=== PATIENT | female | born 1950 | race Caucasian/White ===

== ENCOUNTER → 2016-08-12 | Outpatient (CLI) | payer BC ==
[2016-04-26 17:46] VITALS: BP 110/83
[~2016-08-12] MED LIST: CYCL10TA2 PO
--- NOTE | 2016-08-13 10:20 | RAD ---
DATE: 08/12/2016 EXAM: DIGITAL SCREEN BILAT W/CAD HISTORY: Routine screening COMPARISON: 09/21/2009 This study was interpreted with the benefit of Computerized Aided Detection (CAD). FINDINGS: The breasts are heterogeneously dense. No new or enlarging breast densities are seen. Benign type calcifications are present. No suspicious microcalcifications have developed. IMPRESSION: There is no mammographic evidence of malignancy in either breast. BI-RADS CATEGORY: 2 BENIGN FINDING(S) RECOMMENDED FOLLOW-UP: 12M 12 MONTH FOLLOW-UP PQRS compliance statement: Patient information was entered into a reminder system with a target due date for the next mammogram. Mammography is a sensitive method for finding small breast cancers, but it does not detect them all and is not a substitute for careful clinical examination. A negative mammogram does not negate a clinically suspicious finding and should not result in delay in biopsying a clinically suspicious abnormality. "Our facility is accredited by the [employer] Mammography [employer]."
== END | disposition home or self-care (01) ==
LOC: MAMMO 14:09
PROVIDERS: ATTEND Nurse Practitioner
DX: Z12.31 Encounter for screening mammogram for malignant neoplasm of breast (principal)
CPT/HCPCS: G0202; 77067

== ENCOUNTER → 2016-10-03 | Day surgery (SDC) | payer BC ==
[~2016-10-03] MED LIST changes: +CETI10CA PO; +CLON2TAB2 PO; +CRESTOR10 MG PO; +FENTANYL PF 100 MCG/2 ML VIAL. IV PRN; +IV RINGERS,LACTATED 1000ML 1,000 ML IV SCH; +LIDOCAINE 1% 1 ML SYRINGE. ID PRN; +LIDOCAINE 2% PF Vial for OR 5 ML VIAL. ONE; +MORPHINE SULFATE 2 MG/ML DISP.SYRIN. IV PRN; +MULT-658 PO; +ONDANSETRON PF 4 MG/2 ML VIAL. IV PRN; +PROCHLORPERAZINE 10 MG/2 ML VIAL. IV PRN; +PROPOFOL 40 ML IV ONE
[2016-10-03 10:22] VITALS: BP 135/68
== END | disposition home or self-care (01) ==
LOC: ENDOS 07:55
PROVIDERS: ATTEND Internal Medicine Gastroenterology
DX: Z12.11 Encounter for screening for malignant neoplasm of colon (principal); K64.0 First degree hemorrhoids; K57.30 Diverticulosis of large intestine without perforation or abscess without bleeding; E78.00 Pure hypercholesterolemia, unspecified; F41.9 Anxiety disorder, unspecified
CPT/HCPCS: 45378; G0500; J2704

== ENCOUNTER → 2018-10-19 | Outpatient (CLI) | payer BC ==
[2016-10-03 10:22] VITALS: BP 135/68
[~2018-10-19] MED LIST changes: -CLON2TAB2 PO; +CLON2TAB9 PO; -FENTANYL PF 100 MCG/2 ML VIAL. IV PRN; -IV RINGERS,LACTATED 1000ML 1,000 ML IV SCH; -LIDOCAINE 1% 1 ML SYRINGE. ID PRN; -LIDOCAINE 2% PF Vial for OR 5 ML VIAL. ONE; -MORPHINE SULFATE 2 MG/ML DISP.SYRIN. IV PRN; -ONDANSETRON PF 4 MG/2 ML VIAL. IV PRN; -PROCHLORPERAZINE 10 MG/2 ML VIAL. IV PRN; -PROPOFOL 40 ML IV ONE
--- NOTE | 2018-10-19 17:06 | RAD ---
DATE: 09/21/2009 and 08/12/2016 mammographic exams EXAM: MAMMO REYNA SCREENING BILATERAL HISTORY: Routine mammogram screening COMPARISON: 09/21/2009 and 08/12/2016 mammographic exams This study was interpreted with the benefit of Computerized Aided Detection (CAD). Breast Density: SCATTERED The breast parenchyma shows scattered fibroglandular densities. Breast parenchyma level B. FINDINGS: Benign calcifications are present. Small asymmetry involving the left inner cc view is present 6.5 cm from the nipple. This finding measures up to 0.8 cm. IMPRESSION: Spot compression of the left inner breast asymmetry recommended. Ultrasound may be needed. BI-RADS CATEGORY: 0 INCOMPLETE: NEEDS ADDITIONAL IMAGING EVALUATION AND/OR PRIOR MAMMOGRAMS FOR COMPARISON. RECOMMENDED FOLLOW-UP: ADD ADDITIONAL IMAGING PQRS compliance statement: Patient information was entered into a reminder system with a target due date pending additional imaging for the next mammogram. Mammography is a sensitive method for finding small breast cancers, but it does not detect them all and is not a substitute for careful clinical examination. A negative mammogram does not negate a clinically suspicious finding and should not result in delay in biopsying a clinically suspicious abnormality. "Our facility is accredited by the [employer] Mammography [employer]."
== END | disposition home or self-care (01) ==
LOC: MAMMO 12:03
PROVIDERS: ATTEND Nurse Practitioner
DX: Z12.31 Encounter for screening mammogram for malignant neoplasm of breast (principal); R92.8 Other abnormal and inconclusive findings on diagnostic imaging of breast
CPT/HCPCS: 77063; 77067

== ENCOUNTER → 2018-11-03 | Outpatient (CLI) | payer BC ==
[2016-10-03 10:22] VITALS: BP 135/68
--- NOTE | 2018-11-03 11:38 | RAD ---
Diagnostic left mammogram, 11/03/2018: History: Suspicious screening study Additional spot compression and straight medial lateral views of the left breast were obtained. On the screening study a small nodular opacity was identified medially, best seen on the CC tomosynthesis images #33, at approximately the 9:00 location. With spot compression this opacity appears similar to the other patchy fibroglandular structures. This patient's fibroglandular densities are generally heterogeneous. No suspicious opacity is seen on the straight mediolateral view. There are a few scattered benign type calcifications in the left breast. Left breast ultrasound, 11/03/2018: A targeted ultrasound exam of the medial aspect of the left breast was performed from the 8:00 to 10:00 locations. Heterogeneous fibroglandular shadows are present. No mass or unusual fluid collection is seen. IMPRESSION: A small density seen medially in the left breast most likely represents normal fibroglandular breast tissue. No discrete mass is identified sonographically. Follow-up left mammography in 6 months and bilateral mammography at one year is suggested. BI-RADS 3-probably benign findings
== END | disposition home or self-care (01) ==
LOC: MAMMO 10:42
PROVIDERS: ATTEND Nurse Practitioner
DX: R92.2 Inconclusive mammogram (principal); N64.89 Other specified disorders of breast
CPT/HCPCS: 76641; 77065

== ENCOUNTER → 2018-11-03 | Outpatient (CLI) | payer BC ==
[2016-10-03 10:22] VITALS: BP 135/68
[~2018-11-03] MED LIST changes: +CONTRAST GIVEN. MC PRN; +IOHEXOL 240 MG/ML 50ML VIAL. PO ONE; +IOHEXOL 300 MG/ML 100ML VIAL. IV ONE
--- NOTE | 2018-11-03 13:39 | RAD ---
CT of the abdomen and pelvis with contrast, 11/03/2018: HISTORY: Abdominal pain and bloating Multidetector CT imaging was performed following oral and IV administration of contrast. No hepatic abnormality is detected. The gallbladder is unremarkable. The pancreas shows no abnormality. The spleen is of normal size. No renal or adrenal abnormality is detected. There is mild aortic calcific plaquing without evidence of aneurysm. No abdominal or pelvic adenopathy is seen. The uterus is within normal limits in size for the patient's age. There is decreased density centrally in the uterus, measuring approximately 11 mm in AP dimension. Multiple sigmoid diverticula are noted. No paracolonic inflammatory process is seen. The bowel loops are not dilated. No free fluid or free air is evident in the abdomen or pelvis. There are mild to moderate scattered degenerative changes in the spine. IMPRESSION: 1. Mild sigmoid diverticulosis. 2. Low density thickening in the central uterine region. Sonographic evaluation is suggested. PQRS Compliance Statement: One or more of the following individualized dose reduction techniques were utilized for this examination: 1. Automated exposure control 2. Adjustment of the mA and/or kV according to patient size 3. Use of iterative reconstruction technique Electronically signed by: Vince Jean MD (11/03/2018 1:37 PM) [facility]
== END | disposition home or self-care (01) ==
LOC: CT 14:42
PROVIDERS: ATTEND Internal Medicine Gastroenterology
DX: K57.30 Diverticulosis of large intestine without perforation or abscess without bleeding (principal); I70.0 Atherosclerosis of aorta
CPT/HCPCS: 74177; Q9966; Q9967

== ENCOUNTER → 2018-11-19 | Outpatient (CLI) | payer BC ==
[2016-10-03 10:22] VITALS: BP 135/68
[~2018-11-19] MED LIST changes: -CONTRAST GIVEN. MC PRN; -IOHEXOL 240 MG/ML 50ML VIAL. PO ONE; -IOHEXOL 300 MG/ML 100ML VIAL. IV ONE
--- NOTE | 2018-11-19 16:08 | RAD ---
EXAM: Pelvic sonogram. HISTORY: Abnormal endometrium on CT. TECHNIQUE: Transabdominal and transvaginal sonographic imaging of the pelvis was performed. COMPARISON: CT dated 11/03/2018. FINDINGS: The uterus measures 8.1 x 4.6 x 2.5 cm. There is a heterogeneous thickened endometrium containing cystic lesions, largest of which measures 1.1 cm. The endometrial stripe measures 2.6 cm in thickness. The ovaries are obscured. There is no adnexal mass or fluid collection. IMPRESSION: 1. Heterogeneous thickened endometrium containing cystic lesions. Given the postmenopausal status of the patient, the differential includes cystic endometrial hyperplasia as well as endometrial neoplasm. 2. Obscured ovaries. Electronically signed by: Lexy Monaco MD (11/19/2018 4:05 PM) [place] [id number]
== END | disposition home or self-care (01) ==
LOC: US 15:02
PROVIDERS: ATTEND Nurse Practitioner
DX: N85.8 Other specified noninflammatory disorders of uterus (principal); R93.89 Abnormal findings on diagnostic imaging of other specified body structures; Z78.0 Asymptomatic menopausal state
CPT/HCPCS: 76830; 76856

== ENCOUNTER 2018-12-23 08:51 | Day surgery (SDC) | payer BC ==
[~2018-12-23 08:51] MED LIST changes: +DEXAMETHASONE SOD PHOS 4 MG/ML VIAL ONE; +FAMOTIDINE 20 MG/2 ML VIAL ONE; +HYDROmorphone 2 MG/ML VIAL IV PRN; +IV RINGERS,LACTATED 1000ML 1,000 ML IV SCH; +LIDOCAINE 1% PF 2 ML VIAL. ID PRN; +LIDOCAINE 2% PF 5 ML VIAL. ONE; +MIDAZOLAM HCL/PF 2 MG/2 ML VIAL. ONE; +MORPHINE SULFATE 2 MG/ML VIAL. IV PRN; +ONDANSETRON PF 4 MG/2 ML VIAL. IV PRN; +ONDANSETRON PF 4 MG/2 ML VIAL. ONE; +PROCHLORPERAZINE 10 MG/2 ML VIAL. IV PRN; +PROPOFOL 20 ML IV ONE; +fentaNYL PF VIAL 100 MCG/2 ML VIAL IV PRN; +fentaNYL PF VIAL 100 MCG/2 ML VIAL ONE
[2018-12-23] MEDS ORDERED: CLON2TAB PO (09:19)
[2018-12-23] MEDS ORDERED: CALC600T4 PO (09:20)
[2018-12-23] MEDS ORDERED: CHOL500051 PO (09:21)
[2018-12-23] MEDS ORDERED: FAMOTIDINE 20 MG/2 ML VIAL ONE (10:11)
[2018-12-23] MEDS ORDERED: SEVOFLURANE 31 TO 60 MINUTES. IH ONE (10:41)
--- NOTE | 2018-12-23 10:55 | PDOC ---
BRIEF OPERATIVE NOTE Date: Dec 23, 2018 Pre-Op Diagnosis endometrial thickening seen on sonogram Post-Op Diagnosis endometrial polyp Procedure Performed hysteroscopy D&C with truclear Surgeon Dr. Merle Velasquez Anesthesiologist Dr. Feldman Anesthesia Type: General Blood Loss <10cc IV Fluid see anesthesia Urine Output straight cath prior Specimens Obtained endometrial currettings Findings edometrial polyp, otherwise normal uterine cavity, sounded to 7cm Complications none Operative Note [id number] MERLE VELASQUEZ MD Dec 23, 2018 10:54
[2018-12-23] MEDS ORDERED: HYDROcodone/APAP 5/325MG 1 TAB TABLET PO PRN (11:00)
[2018-12-23] MEDS ORDERED: 0.9 % SODIUM CHLORIDE 10 ML DISP.SYRIN. IV PRN (11:00)
[2018-12-23] MEDS ORDERED: diphenhydrAMINE HCL 25 MG CAPSULE PO PRN (11:00)
[2018-12-23] MEDS ORDERED: CALCIUM CARBONATE 500 MG TAB.CHEW PO PRN (11:00)
[2018-12-23] MEDS ORDERED: MAG HYDROX/ALUMINUM HYD/SIMETH 30 ML ORAL.SUSP PO PRN (11:00)
[2018-12-23] MEDS ORDERED: NALOXONE 0.4 MG/ML VIAL. IV PRN (11:00)
[2018-12-23] MEDS ORDERED: diphenhydrAMINE 50 MG/ML VIAL IV PRN (11:00)
[2018-12-23] MEDS ORDERED: SIMETHICONE 80 MG TAB.CHEW PO PRN (11:00)
--- NOTE | 2018-12-23 11:15 | OP ---
DATE OF SURGERY: 12/23/2018 PREOPERATIVE DIAGNOSES: Abdominal bloating and endometrial thickening seen on sonogram. POSTOPERATIVE DIAGNOSES: Abdominal bloating and endometrial thickening seen on sonogram with an endometrial polyp. PROCEDURE: Hysteroscopy, D and C with TruClear fluid collection system. SURGEON: Manuel Velasquez M.D. WATER CONTROL SUPERVISOR: OR personnel. ANESTHESIOLOGIST: Hernán Feldman M.D. ANESTHESIA: General. ESTIMATED BLOOD LOSS: Less than 10 mL. URINE OUTPUT: With a straight cath prior to procedure. SPECIMENS: Endometrial curetting with a polyp. FINDINGS: Uterus is sounded to 7 cm and endometrial polyp and otherwise normal uterine cavity. Fluid deficit was 200 mL with a TruClear. COMPLICATIONS: None. DESCRIPTION OF PROCEDURE: This patient was taken to the operating room where general anesthesia was placed. The patient was placed in dorsal lithotomy position in Norris stirrups. The patient's vagina was prepped and draped in the normal sterile fashion and a straight cath urine had done prior to my arrival. Upon my arrival, a timeout was performed. Once everyone agreed, a weighted speculum was placed in the patient's vagina. A single tooth tenaculum was used to grasp the anterior lip of the cervix. The Hegar dilators were used to dilate up to admit a 5 mm scope. The scope had already been primed and white balanced. It was placed in with the above findings. The tissue shaver was placed through the operative channel and the polyp was taken out under direct visualization with excellent results. No bleeding and an otherwise normal uterine cavity. Both tubal ostia could be seen, and everything was gone, so this will be sent for pathology. It was removed. There was no bleeding. The tenaculum was removed. There was no bleeding from that either and the fluid deficit settled at around 200, although there was some on the floor as well, so I am sure it was less than that. But anyway everything was removed. Procedure was ended. The patient was awakened from anesthesia and is now being brought to recovery room in stable condition. MANUEL VELASQUEZ MD DR: CRISTIANO/abhi JOB#: [id number] / [id number]
[2018-12-23] MEDS ORDERED: HYDR-2761 PO (11:22)
[2018-12-23 12:03] VITALS: BP 145/70
--- NOTE | 2018-12-24 17:06 | PATHOLOGY ---
[facility] Accession Number: [id number] . 01 Material submitted: . endometrium - ENDOMETRIAL POLYP . 01 Clinical history: . Endometrial thickening, endometrial polyp. . 02 Diagnosis: Endometrial curettings: - Endometrial polyps. [facility]/12/24/2018 . 02 Comment: There is no evidence of hyperplasia or malignancy. (JPM/db; 12/24/2018) . 02 Electronically signed: . Dandre Drake MD, Pathologist NPI- [id number] . 01 Gross description: . Received in formalin labeled "Lita Lara, endometrial polyp" is a 2.5 x 1.4 x 0.2 cm aggregate of pink-burkett friable soft tissue fragments. The specimen is filtered and submitted entirely in cassette A1. ([facility] [place]; 12/23/2018) SY/SYC . 02 Pathologist provided ICD-10: N84.0 . 02 CPT . 475041 Specimen Comment: A courtesy copy of this report has been sent to Specimen Comment: [phone], . Specimen Comment: Report sent to / DR MCGUIRE Performed at: 01 [facility] [address], [place] [id number] MD Jaguar Forrest MD Phone: [phone] Performed at: 02 [facility] [address] [place], [place] [id number] MD Dandre Drake MD Phone: [phone]
== END 2018-12-23 12:35 | disposition home or self-care (01) ==
LOC: SURG 08:51
PROVIDERS: ATTEND Obstetrics & Gynecology
DX: N84.1 Polyp of cervix uteri (principal)
CPT/HCPCS: 58558; J1100; J2001; J2405; J2704; J3010; J3490; J2250

== ENCOUNTER → 2019-05-10 | Outpatient (CLI) | payer BC ==
[~2019-05-10] MED LIST changes: +CALC600T4 PO; +CHOL500051 PO; +CLON2TAB PO; -DEXAMETHASONE SOD PHOS 4 MG/ML VIAL ONE; -FAMOTIDINE 20 MG/2 ML VIAL ONE; +HYDR-2761 PO; -HYDROmorphone 2 MG/ML VIAL IV PRN; -IV RINGERS,LACTATED 1000ML 1,000 ML IV SCH; -LIDOCAINE 1% PF 2 ML VIAL. ID PRN; -LIDOCAINE 2% PF 5 ML VIAL. ONE; -MIDAZOLAM HCL/PF 2 MG/2 ML VIAL. ONE; -MORPHINE SULFATE 2 MG/ML VIAL. IV PRN; -ONDANSETRON PF 4 MG/2 ML VIAL. IV PRN; -ONDANSETRON PF 4 MG/2 ML VIAL. ONE; -PROCHLORPERAZINE 10 MG/2 ML VIAL. IV PRN; -PROPOFOL 20 ML IV ONE; -fentaNYL PF VIAL 100 MCG/2 ML VIAL IV PRN; -fentaNYL PF VIAL 100 MCG/2 ML VIAL ONE
--- NOTE | 2019-05-10 13:41 | RAD ---
DATE: 05/10/2019 EXAM: DIGITAL DIAGNOSTIC LT HISTORY: Abnormal mammogram COMPARISON: 08/12/2016 screen mammogram, 11/03/2018 left unilateral diagnostic mammographic images, 10/19/2018 screen mammogram This study was interpreted with the benefit of Computerized Aided Detection (CAD). Breast Density: HETERO The breast parenchyma is heterogenously dense, which could reduce sensitivity of mammography. Breast parenchyma level C. FINDINGS: Asymmetry involving the left lower inner breast is stable. No suspicious calcification, mass, or distortion. IMPRESSION: Stable BI-RADS CATEGORY: 1 NEGATIVE RECOMMENDED FOLLOW-UP: 12M 12 MONTH FOLLOW-UP PQRS compliance statement: Patient information was entered into a reminder system with a target due date for the next mammogram. Mammography is a sensitive method for finding small breast cancers, but it does not detect them all and is not a substitute for careful clinical examination. A negative mammogram does not negate a clinically suspicious finding and should not result in delay in biopsying a clinically suspicious abnormality. "Our facility is accredited by the [employer] Mammography Program."
== END | disposition home or self-care (01) ==
LOC: MAMMO 13:01
PROVIDERS: ATTEND Nurse Practitioner
DX: N64.89 Other specified disorders of breast (principal)
CPT/HCPCS: 77065

== ENCOUNTER → 2019-08-25 | Outpatient (CLI) | payer BC ==
[~2019-08-25] MED LIST changes: +BUPIVACAINE MPF 0.25% 10 ML VIAL. ONE; +CLON0.25 PO; +IOHEXOL 180 MG/ML 10 ML VIAL. ONE; +methylPREDNISolone ACETATE 80 MG/ML VIAL. ONE
--- NOTE | 2019-08-26 01:14 | PAIN ---
DATE OF SERVICE: 08/25/2019 INITIAL CONSULTATION FOR PAIN CLINIC CHIEF COMPLAINT: Left hip pain. HISTORY OF PRESENT ILLNESS: This is a 69-year-old female who presents with history of pain in the left hip for several years, worse over the past few months. The patient reports it is getting worse with walking, standing, changing positions, especially climbing stairs, in the last one month, it has been significantly increased. The patient reports it is worse with putting all her weight on her left leg with pain radiating into the posterior gluteus, posterior thigh, lateral thigh, anterior thigh, medial groin on the left side only. The patient reports it is also different with barometric changes, with weather. Pain is described as sharp and stabbing, radiating, constant with walking, climbing stairs, aching as well. The patient reports no symptoms on the right side. The patient did have some x-rays of the hips showing decreased joint space and early degenerative changes in the left hip itself. The patient rates her disability rating from 0-10, 10 being the worst, is a 2 with self-care activities and 0 in all other categories. She has been taking naproxen as well as ibuprofen, both of which do decrease the pain temporarily. The patient reports she is doing physical therapy exercises on her own, which seems to help to some extent as she has had physical therapy in the past, which has helped, but not recently. The patient reports it does not awaken her from sleep at night, does affect her ability to walk with stairs sometimes and not affect her bowel or bladder control. She is not using any assistive devices to ambulate. The patient reports significant fatigability of the left lower extremity with pain when walking, especially with the stairs and she has multiple flights of stairs that she climbs at her apartment complex, but she has been skipping this lately because the pain becomes too great. PAST MEDICAL HISTORY: Significant for arthritis, irritable bowel syndrome, dry eyes. PAST SURGICAL HISTORY: Previous surgeries include D and C in 2019. Otherwise, the patient has been in fairly good health. CURRENT MEDICATIONS: Include clonazepam, hydrocodone, Centrum, vitamin D, and Crestor. ALLERGIES: THE PATIENT IS ALLERGIC TO CODEINE. FAMILY HISTORY: Significant for no major medical problems or conditions that she is aware of. 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 REVIEW OF SYSTEMS: The patient's review of systems is positive for those items mentioned in history of present illness. All systems reviewed and otherwise negative. It is complete, full and well documented on the patient's chart. PHYSICAL EXAMINATION: VITAL SIGNS: The patient's blood pressure is 140/72, pulse 72, respirations 18, temperature 98.2 degrees Fahrenheit, height is 63 inches, weight is 123 pounds. GENERAL: The patient is awake, alert, oriented, appropriate, very pleasant demeanor. HEENT: Shows normocephalic, atraumatic. Extraocular movements are intact and symmetrical. Oral cavity: Mucous membranes moist and pink. Dentition is intact. NECK: Shows anterior throat is supple without palpable lymphadenopathy noted. Swallow reflex symmetrical. CHEST: Shows normal on inspection. Breath sounds are clear bilaterally. HEART: Shows S1, S2 clear. No murmurs auscultated. ABDOMEN: Soft, nontender, and nondistended. BACK: Shows spine grossly in the midline. Normal appearing thoracic kyphosis and lumbar lordotic curvature. Lumbar paraspinous muscle shows symmetrical on inspection, on palpation shows some mild tenderness, only diffusely in the low lumbar distribution without significant radiation. EXTREMITIES: The patient's lower extremities show deep tendon reflexes at 2+ in the patellar, 1+ tendo-calcaneus tendons. Motor exam is strong with 5/5 dorsiflexion, extension, quadriceps and hamstring flexion. Peripheral pulses are 1+ posterior tibia. No peripheral edema is noted bilaterally. Lower extremities are warm and dry to touch, equal in color and appearance. Straight leg raise is noted to be negative for reproduction of radicular symptoms bilaterally. Corby's maneuver, however, is positive on the left with external rotation and flexion of the left hip joint. Right side is negative. The patient is able to stand, stand on her toes without difficulty or loss of balance, walks with a slight favoring gait, does appear to have a slight limp favoring the left lower extremity, not using any assistive devices to ambulate. SKIN: Shows warm and dry, good turgor. No edema. No sores, rashes or bruising. IMPRESSION: 1. This is a 69-year-old female with long history of left hip joint pain and groin pain. 2. Plain films of left hip as noted. 3. History of arthritis. PLAN: Options were discussed with the patient including conservative medical managements, physical therapies and interventional techniques. She would like to pursue interventional techniques. We discussed an intraarticular hip joint injection using description as well as anatomical models to describe the procedure. Risks were discussed including but not limited to bleeding, infection, possibility of intravascular injection sequelae, spread of local anesthetic and numbness, side effects of steroid medication and poor results regarding pain control. The patient understands and wished to proceed. The patient will return to clinic in approximately 2 weeks for followup. She was counseled on return appointment, activity level and side effects to be aware of. DIAGNOSIS: Left hip joint pain with left osteoarthritis of hip joint. PROCEDURE: Left intra-articular hip joint injection using C-arm fluoroscopic guidance under sterile prep and drape using local anesthetic. MEDICATION INJECTED: Total of 80 mg of Depo-Medrol plus 3 mL of 0.25% bupivacaine and 2 mL of contrast. CONDITION AT DISCHARGE: Stable. The patient tolerated the procedure well, had no complications. LEON LA MD DR: ALIYAH/abhi JOB#: [id number] / [id number] DIANA Lowe MD
== END ==
LOC: PNCL 13:59
PROVIDERS: ATTEND Anesthesiology
DX: M16.12 Unilateral primary osteoarthritis, left hip (principal); K58.9 Irritable bowel syndrome, unspecified; Z87.39 Personal history of other diseases of the musculoskeletal system and connective tissue; Z98.890 Other specified postprocedural states; Z88.5 Allergy status to narcotic agent
CPT/HCPCS: 20610; 77002; J1040; J3490; Q9965

== ENCOUNTER → 2019-11-02 | Outpatient (CLI) | payer BC ==
[~2019-11-02] MED LIST changes: -IOHEXOL 180 MG/ML 10 ML VIAL. ONE; +methylPREDNISolone ACETATE 40 MG/ML VIAL. ONE; -methylPREDNISolone ACETATE 80 MG/ML VIAL. ONE
--- NOTE | 2019-11-02 12:20 | PAIN ---
DATE OF SERVICE: 11/02/2019 PROGRESS NOTE FOR PAIN CLINIC DIAGNOSES: 1. Left hip joint pain with primary osteoarthritis. 2. Myofascial pain and cervicalgia. HISTORY OF PRESENT ILLNESS: The patient is a 69-year-old female, who returns for followup status post left hip joint injection. The patient reports she did very well with about 80% improvement and the pain returning very mildly in the left hip with walking, standing and climbing stairs, but doing much better than it was. Her chief complaint today is pain in the neck and the left side of the shoulder, some in the upper extremities, some on the right side as well, but mostly on the left side of the neck and shoulder. The patient reports this happened about 6 weeks ago, no specific injury or action that she is aware of; just woke up and it was hurting. It is keeping her from sleep at night, but she is doing stretching and strengthening exercises, heat applications, cold applications, taking ibuprofen, all of these which helped, but do not get rid of the pain completely. The patient reports the pain is a 9 on a scale of 10 at its worst over the past week, 8 on an average and 4 at its least and is a 6 out of 10 today. The patient reports again awakening her from sleep about every 3 hours. The patient reports no new motor or sensory deficits, no loss of motor function in the upper extremities, and the left hip is doing much better with ambulation. The patient describes the pain in the neck and shoulders as aching, dull, tight, cramping, burning and becoming severe on and off in intensity. PHYSICAL EXAMINATION: VITAL SIGNS: The patient's blood pressure is 125/72, pulse 74, respirations are 18, temperature 98.7 degrees Fahrenheit, height 5 feet 2 inches, weight is 184 pounds. GENERAL: The patient is awake, alert, oriented, appropriate, very pleasant demeanor. HEENT: Shows normocephalic, atraumatic. Extraocular movements are intact and symmetrical. Oral cavity: Mucous membranes moist and pink; dentition is intact. NECK: Shows anterior throat supple without palpable lymphadenopathy noted. Swallow reflex symmetrical. CHEST: Shows normal on inspection. Breath sounds are clear bilaterally. HEART: Shows S1, S2 clear. No murmurs auscultated. ABDOMEN: Soft, nontender and nondistended. No palpable organomegaly is noted. No rebound or guarding demonstrated. BACK: Shows spine grossly in the midline, normal-appearing thoracic kyphosis and lumbar lordotic curvature. Cervical lordotic curvature shows normal on inspection. Cervical paraspinous musculature shows symmetrical on inspection, with palpation shows some very significant tenderness in the upper, middle and lower distributions of the cervical paraspinous musculature, much worse on the left than the right, present in the posterior mastoid, superior cervical, middle and lower trapezius and cervical paraspinous musculature, and medial and lateral trapezius on the left, also medial and lateral trapezius on the right, still roping, firm, very tender with palpation, but not as severe as on the left side. This is true into the upper thoracic distribution, again worse in left than right, but present bilaterally with very firm rope-like musculature, consistent with trigger point areas of musculature without radiation. The patient has good rotational motion of cervical spine, both laterally, greater than 45 degrees, closer to 90 degrees, with some moderate tenderness with left lateral rotation and extension, but not with forward flexion. Right left lateral rotation is nontender. EXTREMITIES: Upper extremities show deep tendon reflexes are 2+ in the biceps and triceps tendons. Motor exam is strong with roller machine operator strength rated at 5/5 and equal bilaterally. Peripheral pulses are 2+ radial. No peripheral edema is noted. The patient's lower extremities show deep tendon reflexes are 2+ in the patellar and tendo-calcaneus tendons. Motor exam is strong with 5/5 dorsiflexion, extension, quadriceps and hamstring flexion. The patient's left hip shows much improved with negative Corby sign on the left and the right. Options were discussed with the patient. The patient's old chart was reviewed as well as her current medication regimen updated. Current review of systems updated today as well. We will proceed with trigger point injections of the identified musculature bilaterally, cervical, trapezius and thoracic paraspinous musculature. Risks were discussed including, but not limited to bleeding, infection, possibility of intravascular injection sequelae, spread of local anesthetic and numbness, pneumothorax, side effects of steroid medication and poor results regarding pain control. The patient understands and wishes to proceed. The patient will return to clinic in approximately 2 weeks for followup. She was counseled as to return appointment, activity level and side effects to be aware of. DIAGNOSIS: Myofascial pain with cervicalgia. PROCEDURE: Trigger point injections, bilateral trapezius musculature, bilateral cervical paraspinous musculature, bilateral thoracic paraspinous musculature, under sterile prep and drape using local anesthetic. MEDICATIONS INJECTED: A total of 10 mL of 0.25% bupivacaine, 40 mg total of Depo-Medrol after negative aspiration at each injection site. CONDITION AT DISCHARGE: Stable. The patient tolerated the procedure well, had no complications. LEON LA MD DR: ALIYAH/abhi JOB#: [id number] / [id number]
== END | disposition home or self-care (01) ==
LOC: PNCL 09:24
PROVIDERS: ATTEND Anesthesiology
DX: M79.18 Myalgia, other site (principal); M54.2 Cervicalgia; M16.12 Unilateral primary osteoarthritis, left hip; Z88.6 Allergy status to analgesic agent; Z88.8 Allergy status to other drugs, medicaments and biological substances
CPT/HCPCS: 20553; J1030; J3490

== ENCOUNTER → 2020-04-25 | Outpatient (CLI) | payer BC ==
[~2020-04-25] MED LIST changes: -BUPIVACAINE MPF 0.25% 10 ML VIAL. ONE; -CALC600T4 PO; +CALC600T6 PO; -methylPREDNISolone ACETATE 40 MG/ML VIAL. ONE
--- NOTE | 2020-04-25 14:30 | RAD ---
BILATERAL SCREENING MAMMOGRAM, 3-D History: Routine screening. Comparison: 10/19/2018, 08/12/2016, 09/21/2009 screening mammographic exams, and 11/03/2018 diagnostic images of the left breast. Technique: MLO and CC digital tomosynthesis (3D) images obtained. Radiologist reviewed these images on dedicated workstation. Findings: Breast Tissue Density B : There are scattered areas of fibroglandular density. There are no dominant masses, suspicious microcalcifications, or architectural distortion. IMPRESSION: No mammographic evidence of malignancy. Recommend routine screening. BI-RADS category 1: Negative. The images were reviewed with computer-aided detection. Patient information is entered into reminder system with a target due date for the next screening mammogram. Mammography is the most sensitive method for finding small breast cancers, but it does not detect them all and is not a substitute for careful clinical examination. A negative mammogram does not negate a clinically suspicious finding and should not result in delay in biopsying a clinically suspicious abnormality. "Our facility is accredited by the [employer] Mammography Program." Electronically signed by: Richard Cullen MD (04/25/2020 2:27 PM) [email or web address]
== END ==
LOC: MAMMO 12:44
PROVIDERS: ATTEND Nurse Practitioner
DX: Z12.31 Encounter for screening mammogram for malignant neoplasm of breast (principal)
CPT/HCPCS: 77063; 77067

== ENCOUNTER → 2020-10-05 | Outpatient (CLI) | payer BC ==
[~2020-10-05] MED LIST changes: +BUPIVACAINE MPF 0.25% 10 ML VIAL. ONE; -CALC600T6 PO; +CALC600T60 PO; +IOHEXOL 180 MG/ML 10 ML VIAL. ONE; +methylPREDNISolone ACETATE 80 MG/ML VIAL. ONE
--- NOTE | 2020-10-05 11:08 | PDOC ---
Progress Note - Pain Clinic Date of Service: DOS: DATE: 10/05/20 TIME: 11:04 Diagnosis: Dx: Bilateral hip joint pain with osteoarthritis Myofascial pain Cervicalgia History or Present Illness: HPI: 70-year-old female returns follow-up status post left hip joint injection D 2019 patient did very well with about 60% improvement her right hip however is more painful now she has new films of the right hip showing some mild to moderate arthritic changes and changes of bursitis in the right hip as well. Patient reports is worse with walking standing specially climbing stairs putting all her weight on her right hip stepping up onto the steps to the bus as well as getting up from a seated position or sitting down from standing patient reports is an 8 on scale 10 is worse over the past week 8 on average 5-1/2 at its least and is an 8 today. Patient was aching dull tight some radiating pain along the lateral aspect of the left thigh but much worse with weightbearing and standing. Patient reports generally does not awaken her from sleep at night better with sitting and laying down. Left hip is doing very well after last injection but the right hip now is becoming much more noticeable and tender. Patient reports no new bowel or bladder incontinence no new motor or sensory deficits. Physical Exam: VS: Blood pressure is 150/66 pulse 69 respirations 18 temperature 99.2 F weight is 182 pounds PE: PHYSICAL EXAMINATION: GENERAL: The patient is awake, alert, oriented, appropriate, very pleasant demeanor HEENT: Shows normocephalic, atraumatic. Extraocular movements are intact and symmetrical. Oral cavity: Mucous membranes moist and pink. Dentition is intact. NECK: Shows anterior throat supple without palpable lymphadenopathy noted. Swallow reflex symmetrical. CHEST: Shows normal on inspection. Breath sounds are clear bilaterally, no rales or rhonchi. HEART: Shows S1, S2 clear. No murmurs auscultated. ABDOMEN: Soft, nontender, nondistended, obese. No palpable organomegaly is noted. BACK: Shows spine grossly in the midline. Normal-appearing cervical lordotic curvature. There is slightly increased thoracic kyphosis, some minor flattening of the lumbar lordotic curvature. EXTREMITIES: Lower extremities show deep tendon reflexes 2+ in the patellar and tendo calcaneus tendons. Motor exam is 5 on a scale of 5 with right dorsiflexion, extension, quadriceps and hamstring flexion and 5/5 on the left. Peripheral pulses are 1+ posterior tibial. No peripheral edema is noted bilate rally. Lower extremities are warm and dry to touch, equal in color and appearance. Patient has positive Corby's maneuver on the right side with external rotation and posterior displacement of the right hip with pain in the right groin reproduced as well is in the posterior gluteus and some in the lateral thigh. Left side shows very mild tenderness with lateral displacement but without radiation. SKIN: Shows warm and dry, good turgor. No edema. No sores, rashes or bruising throughout. Procedure: Procedure: Options were discussed with the patient. Patient chart reviews her current medication regimen updated current review of systems updated today as well. We will proceed with a right intra-articular hip joint injection with fluoroscopic guidance. Risk were discussed including but not limited to bleeding infection possibility of intravascular injection sequelae spread local anesthetic numbness side effects steroid medication special fluoroscopy and portals regarding pain control. Patient understands wished to proceed. Patient return to clinic in approximately 4 weeks for follow-up, was counseled as to return appointment activity level and side effects to be aware of. Medication Injected: Med Injected: Under sterile prep and drape patient in supine position using C-arm fluoroscopic guidance right to hip joint was visualized and using local anesthetic 1% lidocaine laterally to topically anesthetize the skin then 22-gauge needle 5 inch with stylette was used under direct fluoroscopic visualization to enter the right hip joint without difficulty stylet was removed and 2 cc of contrast was injected with good spread within the intra-articular hip joint itself without washout and without uptake. At this time solution containing 3 cc of 0.25 bupivacaine and 80 Depo-Medrol was injected to the hip joint. Needle was remove d sterile bandage was applied. Patient tolerated the procedure well and had no complications. Condition at Discharge: Condition at Discharge: Condition at discharge stable, patient already procedure well and had no complic ations. LEON LA MD Oct 05, 2020 11:08
--- NOTE | 2020-10-05 11:09 | PDOC4 ---
PROCEDURE Procedure Patient was consented for right intra-articular hip joint injection. Risks were discussed including but not limited to bleeding infection possibility of intravascular injection sequelae spread local anesthetic numbness side effects steroid medication exposure fluoroscopy and portals rating pain control. Patient understands wished to proceed Under sterile prep and drape patient in supine position using C-arm fluoroscopic guidance right to hip joint was visualized and using local anesthetic 1% lidocaine laterally to topically anesthetize the skin then 22-gauge needle 5 inch with stylette was used under direct fluoroscopic visualization to enter the right hip joint without difficulty stylet was removed and 2 cc of contrast was injected with good spread within the intra-articular hip joint itself without washout and without uptake. At this time solution containing 3 cc of 0.25 bupivacaine and 80 Depo-Medrol was injected to the hip joint. Needle was removed sterile bandage was applied. Patient tolerated the procedure well and had no complications. LEON LA MD Oct 05, 2020 11:09
== END | disposition home or self-care (01) ==
LOC: PNCL 09:40
PROVIDERS: ATTEND Anesthesiology
DX: M16.0 Bilateral primary osteoarthritis of hip (principal); M79.18 Myalgia, other site; M54.2 Cervicalgia; E78.00 Pure hypercholesterolemia, unspecified; M81.0 Age-related osteoporosis without current pathological fracture; F41.9 Anxiety disorder, unspecified; Z79.899 Other long term (current) drug therapy; Z88.5 Allergy status to narcotic agent; Z88.8 Allergy status to other drugs, medicaments and biological substances; Z72.89 Other problems related to lifestyle
CPT/HCPCS: 20610; 77002; J1040; J3490; Q9965

== ENCOUNTER → 2021-05-01 | Outpatient (CLI) | payer BC ==
[~2021-05-01] MED LIST changes: -BUPIVACAINE MPF 0.25% 10 ML VIAL. ONE; +CYCL10TA19 PO; -CYCL10TA2 PO; -IOHEXOL 180 MG/ML 10 ML VIAL. ONE; -methylPREDNISolone ACETATE 80 MG/ML VIAL. ONE
--- NOTE | 2021-05-01 15:30 | RAD ---
INDICATION : Routine Screening. COMPARISON: Multiple priors including September 2018 TECHNIQUE: Standard mammogram screening views of the bilateral breasts were obtained with 3D tomosynt hesis. CAD was utilized. FINDINGS: The breasts are heterogenous density. No definite suspicious mass. IMPRESSION: BI-RADS Category 2: Benign findings. Follow-up screening exam could be obtained in one year. The patient was placed into the recall system with a suggested recall date for follow up imaging. Mammography is the most sensitive method for finding small breast cancers, but it does not detect the m all and is not a substitute for careful clinical examination. A negative mammogram does not negate a clinically suspicious finding and should not result in delay in biopsying a clinically suspicious abnormality. Electronically signed by: Greg Corcoran MD (05/01/2021 3:27 PM) [id number]
== END ==
LOC: MAMMO 11:49
PROVIDERS: ATTEND Family Medicine
DX: Z12.31 Encounter for screening mammogram for malignant neoplasm of breast (principal)
CPT/HCPCS: 77063; 77067

== ENCOUNTER → 2021-11-19 | Outpatient (CLI) | payer BC ==
[~2021-11-19] MED LIST changes: +BUPIVACAINE MPF 0.25% 10 ML VIAL. ONE; +DEXAMETHASONE PRES.FREE 10 MG/ML VIAL. ONE; +IOHEXOL 180 MG/ML 10 ML VIAL. ONE
--- NOTE | 2021-11-19 11:48 | PDOC ---
Progress Note - Pain Clinic Date of Service: DOS: DATE: 11/19/21 TIME: 11:44 Diagnosis: Dx: Left hip joint pain with osteoarthritis Myofascial pain Cervicalgia History or Present Illness: HPI: 71-year-old female returns for follow-up last seen September 2020 patient had right hip injection with very good results and her 100% improvement for the last year patient reports her left hip is now significantly painful worse with walking standing changing position especially climbing stairs going up hills putting all her weight on her left leg such as climbing up a step or stair patient reports it is excruciating and is radiating to the left groin as well as the left lateral thigh patient reports is better with sitting or laying down generally does not awaken her from sleep at night no motor deficits but significant fatigability of the left leg when she is on her feet and walking patient reported aching sharp tight cramping burning stabbing on and off in intensity with weightbearing patient reports its 6 on scale 10 is worst in the past week 5 on average 5 its least and when she turns to the left it is much more excruciating. Patient reports no bowel or bladder incontinence no loss of motor function but significant pain on the left hip with history of hip osteoarthritis. Physical Exam: VS: Blood pressure is 119/69 pulse 74 respirations 18 temperature 98.3 F height is 5 feet 2 inches weight is 180 pounds. PE: PHYSICAL EXAMINATION: GENERAL: The patient is awake, alert, oriented, appropriate, very pleasant in demeanor HEENT: Shows normocephalic, atraumatic. Extraocular movements are intact and symmetrical. Oral cavity: Mucous membranes moist and pink. Dentition is intact. NECK: Shows anterior throat supple without palpable lymphadenopathy noted. Swallow reflex symmetrical. CHEST: Shows normal on inspection. Breath sounds are clear bilaterally, no rales rhonchi or wheezes auscultated. HEART: Shows S1, S2 clear. No murmurs auscultated. ABDOMEN: Soft, nontender, nondistended. No palpable organomegaly is noted. BACK: Shows spine grossly in the midline. Normal-appearing cervical lordotic curvature. There is slightly increased thoracic kyphosis, some minor flattening of the lumbar lordotic curvature. Lumbar paraspinous muscles show symmetrical on inspection, on palpation shows some moderate tenderness diffusely throughout the upper, middle and lower distribution of the paraspinous muscles, but without specific trigger points, without radiation of pain. The patient has good rotational motion of the lumbar spine, both laterally as well as extension and flexion without significant difficulty. EXTREMITIES: Lower extremities show deep tendon reflexes 2+ in the patellar and tendo calcaneus tendons. Motor exam is 5 on a scale of 5 with right dorsiflexion, extension, quadriceps and hamstring flexion and 5/5 on the left. Peripheral pulses are 1 posterior tibial. No peripheral edema is noted bilaterally. Lower extremities are warm and dry to touch, equal in color and appearance. Patient has positive Corby's maneuver on the left with external rotation posterior displacement of the hip but is negative on the right. SKIN: Shows warm and dry, good turgor. No edema. No sores, rashes or bruising throughout. Procedure: Procedure: Options were discussed with the patient. Patient's old chart was reviewed as her current medication regimen updated current review of systems updated today as well. We will proceed with a left intra-articular hip joint injection today with fluoroscopic guidance. Risks are discussed including but not limited to bleeding infection possibility of intravascular injection and sequelae, spread local anesthetic numbness side effects of steroid medication and portals regarding pain control. Patient understands wishes to proceed. Patient return to clinic in approximately 4 weeks for follow-up, was counseled as to return appointment, activity level, and side effect to be aware of. Medication Injected: Med Injected: Under sterile prep and drape patient in supine position patient's left hip was visualized using C-arm fluoroscopic guidance. Using 1% lidocaine area lateral to the hip joint was anesthetized and using direct fluoroscopic vision 22-gauge 5 inch Quincke needle with stylette was then advanced under direct fluoroscopic guidance into the left intra-articular hip joint. 3 cc of contrast was used to show good spread within the hip joint itself and without washout or uptake. At this time, 3 cc 0.25% bupivacaine and 20 mg dexamethasone was then injected into the hip joint. Needle was withdrawn and sterile bandage was applied. Patient tolerated procedure well and had no complications. Condition at Discharge: Condition at Discharge: Condition at discharge stable, patient tolerated procedure well and had no complications. LEON LA MD November 19, 2021 11:48
--- NOTE | 2021-11-19 11:48 | PDOC4 ---
Procedure Note: ICD 10 Code: ICD 10 Code: M2 5.552 M16.12 Procedure Note: Patient was consented for left intra-articular hip joint injection with fluoroscopic guidance. Risk were discussed including but not limited to bleeding infection possibility of intravascular injection sequelae spread of local anesthetic and numbness side effects steroid medication exposure fluoroscopy and poor results regarding pain control. Patient understands and w ished to proceed. Under sterile prep and drape patient in supine position patient's left hip was visualized using C-arm fluoroscopic guidance. Using 1% lidocaine area lateral to the hip joint was anesthetized and using direct fluoroscopic vision 22-gauge 5 inch Quincke needle with stylette was then advanced under direct fluoroscopic guidance into the left intra-articular hip joint. 3 cc of contrast was used to show good spread within the hip joint itself and without washout or uptake. At this time, 3 cc 0.25% bupivacaine and 20 mg dexamethasone was then injected into the hip joint. Needle was withdrawn and sterile bandage was applied. Patient tolerated procedure well and had no complications. LEON LA MD November 19, 2021 11:48
== END | disposition home or self-care (01) ==
LOC: PNCL 10:50
PROVIDERS: ATTEND Anesthesiology
DX: M16.12 Unilateral primary osteoarthritis, left hip (principal); M54.2 Cervicalgia; M79.18 Myalgia, other site; E78.00 Pure hypercholesterolemia, unspecified; M81.0 Age-related osteoporosis without current pathological fracture; F41.9 Anxiety disorder, unspecified; Z79.899 Other long term (current) drug therapy; Z98.890 Other specified postprocedural states; Z88.5 Allergy status to narcotic agent; Z88.8 Allergy status to other drugs, medicaments and biological substances
CPT/HCPCS: 20610; 77002; J1100; J3490; Q9965